=== PATIENT | female | born 1995 | race Caucasian/White ===

== ENCOUNTER 2018-03-23 14:19 | Outpatient (CLI) | payer BC | END 2018-03-23 14:20 | disposition home or self-care (01) | LOC: CTENTCT 14:19 | PROVIDERS: ATTEND Otolaryngology Plastic Surgery within the Head & Neck | DX: S09.93XA Unspecified injury of face, initial encounter (principal) | CPT/HCPCS: 70486 ==

== ENCOUNTER 2019-04-11 15:10 | Outpatient (CLI) | payer BC ==
--- NOTE | 2019-04-11 16:30 | ULT ---
US Thyroid STANDARD HISTORY: Palpable thyroid nodule COMPARISON: None. FINDINGS: Real-time imaging of the right and left lobes of the thyroid gland were performed. The righ t lobe measures 1 x 1.2 x 3.8 cm. The left lobe measures 0.7 x 1.3 x 3.9 cm. A 3 mm cystic lesion is seen in the upper pole of the left lobe with a 4 to 5 mm complex nodule withi n the lower pole. IMPRESSION: Tiny left lobe thyroid nodules.
== END 2019-04-11 15:11 | disposition home or self-care (01) ==
LOC: BICULT 15:10
PROVIDERS: ATTEND Internal Medicine Endocrinology, Diabetes & Metabolism
DX: E07.89 Other specified disorders of thyroid (principal); E04.2 Nontoxic multinodular goiter
CPT/HCPCS: 76536